=== PATIENT | male | born 1935 ===

== ENCOUNTER 2017-07-20 10:29 | Outpatient (CLI) | payer OTHER ==
[~2017-07-20 10:29] MED LIST: ALLOPURINOL100 MG; ASPIR 8181 MG; CARVEDILOL12.5 MG; CELEBREX100 MG; KLOR-CON M1010 MEQ; LIPITOR40 MG; LISINOPRIL40 MG; NIACINOL500 MG; VOLTAREN100 GM TOP
== END 2017-07-20 12:55 | disposition home or self-care (01) ==
LOC: SONOGRAMA 10:29
DX: M25.512 Pain in left shoulder (principal); M25.511 Pain in right shoulder